=== PATIENT | male | born 1975 | race Caucasian/White ===

== ENCOUNTER 2020-05-26 03:21 | Emergency (ER) | payer MEDICARE ==
[~2020-05-26 03:21] MED LIST: ALDACTONE25 MG PO; AMLODIPINE BESYL5 MG PO; ANCEF IV 1000 MG1 GM IV; ASPIRIN EC81 MG PO; BUPROPION XL150 MG PO; CLINDAMYCIN HC300 MG PO; DAKIN'S SOLUTI500 ML TOP; DILTIAZEM ER420 MG PO; DOME-PASTE BANDA1 EA EXT; FENOFIBRATE200 MG PO; FISH OIL 1,0001 EAC1 PO; GLUCOPHAGE1000 MG PO; GLUCOPHAGE500 MG PO; IBUPROFEN800 MG PO; INVOKANA100 MG PO; KEFLEX500 MG PO; LAC-HYDRIN FIV226 GM TP; LANTUS INS100 UTS/M1 SC; LANTUS100 UNIT/1 SC; LASIX 40 MG TAB40 MG PO; LATUDA40 MG PO; LEVAQUIN750 MG PO; LEVEMIR100 UNIT/1 SQ; LIPITOR TAB 1010 MG PO; LOPRESSOR 50 MG50 MG PO; LOPRESSOR100 MG PO; LOVAZA1 GM PO; MINOXIDIL10 MG PO; NEURONTIN 300300 MG PO; NEXIUM40 MG PO; NORCO 7.5-3251 EACH PO; NORVASC5 MG PO; NOVOLOG 10100 UNITS1 SC; NOVOLOG MI100 UNIT/2 SQ; RANEXA500 MG PO; ROCEPHIN 2 GM AD2 GM IV; SEROQUEL100 MG PO; SPIRONOLACTONE50 MG PO; VANCOCIN IV 11000 MG IM; VENTOLIN HFA 66.7 GM INH; WELLBUTRIN XL150 MG PO; ZITHROMAX250 MG PO
[2020-05-26 03:59] LABS: HEMOGLOBIN 12.9 gm/dl (14.0-17.5); RED BLOOD COUNT 4.37 M/UL (4.20-5.50); WHITE BLOOD COUNT 8.7 K/UL (4.5-11.0)
[2020-05-26 08:24] LABS: HEMOGLOBIN 13.2 gm/dl (14.0-17.5); RED BLOOD COUNT 4.47 M/UL (4.20-5.50); WHITE BLOOD COUNT 8.2 K/UL (4.5-11.0)
== END 2020-05-26 10:34 | disposition short-term general hospital (02) ==
LOC: ER1 03:21
PROVIDERS: Emergency Medicine; Family Medicine
DX: K46.9 Unspecified abdominal hernia without obstruction or gangrene (principal); E11.9 Type 2 diabetes mellitus without complications
CPT/HCPCS: 80053; 83605; 83690; 85025; 85652; 86140; 87635; 93005; 96374; 96375; 96376; 99285; C9113; J1200; J2270; J2405; J2930; J7030

== ENCOUNTER 2020-12-28 16:58 | Inpatient (IN) | payer MEDICARE ==
[~2020-12-28] VITALS: Ht 177.8 cm; Wt 114.4 kg
[2020-12-28 18:42] LABS: HEMOGLOBIN 14.8 gm/dl (14.0-17.5); RED BLOOD COUNT 5.18 M/UL (4.20-5.50); WHITE BLOOD COUNT 8.9 K/UL (4.5-11.0)
[2020-12-28 19:09] LABS: BUN/CREATININE RATIO 12 (0-10)
[2020-12-28] MEDS ORDERED: LASIX40 MG PO (21:30)
[2020-12-28] MEDS ORDERED: DILTIAZEM HCL90 MG PO (21:30)
[2020-12-28] MEDS ORDERED: LIPITOR40 MG PO (21:31)
[2020-12-28] MEDS ORDERED: CLONIDINE HCL0.3 MG PO (21:31)
[2020-12-28] MEDS ORDERED: LOPRESSOR100 MG PO (21:32)
[2020-12-28] MEDS ORDERED: PRILOSEC OTC20 MG PO (22:24)
[2020-12-29 04:15] LABS: HEMOGLOBIN 14.5 gm/dl (14.0-17.5); RED BLOOD COUNT 4.94 M/UL (4.20-5.50); WHITE BLOOD COUNT 9.2 K/UL (4.5-11.0)
[2020-12-29 04:35] LABS: BUN/CREATININE RATIO 13 (0-10)
--- NOTE | 2020-12-29 19:00 | NUR ---
Patient called out to staff reporting severe chest pain that is worsening. BP 203/105. pulses palpable and good in all extremities, lung sounds clear, bowel sounds present. Notified Dr. Dobbs and new orders placed. Orders for Nitro drip per protocol, made Dr. Dobbs aware of allergy states to give it anyways.
--- NOTE | 2020-12-30 22:59 | NUR ---
PTS BP BREIFLY DROPPED TO 88/63. TOOK IT MANUALLY AND IT WAS 100/60. NOTIFIED DR. BROWN ORDERS RECIEVED. BP NOW 82/51. 500ML BOLUS STARTED PER ORDERS.
[2021-01-01 03:19] LABS: HEMOGLOBIN 12.9 gm/dl (14.0-17.5); WHITE BLOOD COUNT 7.8 K/UL (4.5-11.0)
[2021-01-01 03:57] LABS: RED BLOOD COUNT 4.29 M/UL (4.20-5.50)
[2021-01-01 04:03] LABS: BUN/CREATININE RATIO 20 (0-10)
[2021-01-01] MEDS ORDERED: LOPRESSOR 50 MG50 MG PO (15:47)
[2021-01-01] MEDS ORDERED: CARDURA 2MG TAB2 MG PO (15:47)
== END 2021-01-01 17:37 | disposition home or self-care (01) | DRG 305 ==
LOC: ER1 16:58 → PROG CARE 20:52 → CDU 20:52 → PROG CARE 21:50
PROVIDERS: Internal Medicine; Physician Assistant; ADMIT Internal Medicine
PROC: B24BZZZ Ultrasonography of Heart with Aorta (ICD-10-PCS; principal; 2020-12-29)
DX: I16.1 Hypertensive emergency (principal); N17.9 Acute kidney failure, unspecified; E66.2 Morbid (severe) obesity with alveolar hypoventilation; E11.22 Type 2 diabetes mellitus with diabetic chronic kidney disease; I08.2 Rheumatic disorders of both aortic and tricuspid valves; I25.10 Atherosclerotic heart disease of native coronary artery without angina pectoris; I44.0 Atrioventricular block, first degree; R80.9 Proteinuria, unspecified; Z20.822 Contact with and (suspected) exposure to COVID-19; N18.30 Chronic kidney disease, stage 3 unspecified; I13.0 Hypertensive heart and chronic kidney disease with heart failure and stage 1 through stage 4 chronic kidney disease, or unspecified chronic kidney disease; I50.9 Heart failure, unspecified; Z98.84 Bariatric surgery status; Z98.890 Other specified postprocedural states; Z79.899 Other long term (current) drug therapy; Z82.49 Family history of ischemic heart disease and other diseases of the circulatory system; Z88.8 Allergy status to other drugs, medicaments and biological substances; Z91.041 Radiographic dye allergy status; Z68.36 Body mass index [BMI] 36.0-36.9, adult
CPT/HCPCS: ECHO; 36415; 71045; 71250; 80048; 80053; 81001; 82550; 82553; 83874; 83880; 84484; 85025; 93005; 93306; 93880; 96374; 99285; U0002

== ENCOUNTER 2021-04-05 20:30 | Emergency (ER) | payer MEDICARE ==
[~2021-04-05 20:30] MED LIST changes: +CARDURA 2MG TAB2 MG PO; +CLONIDINE HCL0.3 MG PO; +DILTIAZEM HCL90 MG PO; +LASIX40 MG PO; +LIPITOR40 MG PO; +PRILOSEC OTC20 MG PO
[2021-04-05 21:40] LABS: HEMOGLOBIN 12.3 gm/dl (14.0-17.5); RED BLOOD COUNT 3.96 M/UL (4.20-5.50); WHITE BLOOD COUNT 13.7 K/UL (4.5-11.0)
== END 2021-04-05 23:57 | disposition home or self-care (01) ==
LOC: ER1 20:30
PROVIDERS: Preventive Medicine Occupational Medicine
DX: E86.0 Dehydration (principal); I10 Essential (primary) hypertension
CPT/HCPCS: 70450; 80053; 82140; 83690; 85025; 85652; 86140; 99285; J7030

== ENCOUNTER 2021-04-10 14:45 | Emergency (ER) | payer MEDICARE ==
[2021-04-10] MEDS ORDERED: CATAPRES 0.1MG0.1 MG PO (16:54)
[2021-04-10] MEDS ORDERED: VISTARIL25 MG PO (16:54)
== END 2021-04-10 17:20 | disposition home or self-care (01) ==
LOC: ER1 14:45
DX: F41.9 Anxiety disorder, unspecified (principal); I10 Essential (primary) hypertension; Z76.0 Encounter for issue of repeat prescription; Z88.8 Allergy status to other drugs, medicaments and biological substances
CPT/HCPCS: 99283

== ENCOUNTER 2021-07-28 22:49 | Emergency (ER) | payer MEDICARE ==
[~2021-07-28 22:49] MED LIST changes: +CATAPRES 0.1MG0.1 MG PO; +VISTARIL25 MG PO
[2021-07-29 00:39] LABS: HEMOGLOBIN 12.4 gm/dl (14.0-17.5); RED BLOOD COUNT 4.13 M/UL (4.20-5.50); WHITE BLOOD COUNT 8.1 K/UL (4.5-11.0)
[2021-07-29 00:44] LABS: BUN/CREATININE RATIO 11 (0-10)
== END 2021-07-29 05:12 | disposition home or self-care (01) ==
LOC: ER1 22:49
PROVIDERS: Physician Assistant
DX: R41.3 Other amnesia (principal); E10.9 Type 1 diabetes mellitus without complications; Z91.041 Radiographic dye allergy status
CPT/HCPCS: 70450; 71045; 80053; 82550; 82553; 82607; 82746; 84439; 84443; 84484; 85025; 99284; G0480

== ENCOUNTER 2021-09-04 20:45 | Emergency (ER) | payer MEDICARE ==
[2021-09-04 21:49] LABS: HEMOGLOBIN 12.9 gm/dl (14.0-17.5); RED BLOOD COUNT 4.3 M/UL (4.20-5.50); WHITE BLOOD COUNT 9.4 K/UL (4.5-11.0)
[2021-09-04 22:11] LABS: BUN/CREATININE RATIO 23 (0-10)
[2021-09-05] MEDS ORDERED: CLONIDINE HCL0.3 MG PO (00:55)
== END 2021-09-05 03:34 | disposition home or self-care (01) ==
LOC: ER1 20:45
PROVIDERS: Emergency Medicine
DX: I10 Essential (primary) hypertension (principal); I71.2 Thoracic aortic aneurysm, without rupture
CPT/HCPCS: 71045; 71260; 80053; 82550; 82553; 83880; 84484; 85025; 93005; 96374; 96375; 99285; J1100; J1200; Q9967

== ENCOUNTER → 2021-09-16 | Outpatient (CLI) | payer MEDICARE ==
[2021-09-18 08:16] LABS: RPR Non Reactive (Non Reactive)
[2021-09-18 14:13] LABS: LYME TOTAL ANTIBODY EIA Negative (Negative)
== END ==
LOC: LAB 15:20
PROVIDERS: Psychiatry & Neurology Neurology
DX: F41.9 Anxiety disorder, unspecified (principal); E07.9 Disorder of thyroid, unspecified; R41.3 Other amnesia; Z86.79 Personal history of other diseases of the circulatory system
CPT/HCPCS: 36415; 82607; 82746; 84443; 86592; 86618

== ENCOUNTER 2021-10-26 06:34 | Emergency (ER) | payer MEDICARE ==
[2021-10-26 08:02] LABS: HEMOGLOBIN 12.7 gm/dl (14.0-17.5); RED BLOOD COUNT 4.42 M/UL (4.20-5.50); WHITE BLOOD COUNT 9.5 K/UL (4.5-11.0)
[2021-10-26] MEDS ORDERED: ZOFRAN ODT 4 MG4 MG SL (09:59)
[2021-10-26] MEDS ORDERED: ENDOCET 5-3251 EACH PO (09:59)
== END 2021-10-26 10:14 | disposition home or self-care (01) ==
LOC: ER1 06:34
PROVIDERS: Emergency Medicine
DX: N13.2 Hydronephrosis with renal and ureteral calculous obstruction (principal); R00.1 Bradycardia, unspecified; I10 Essential (primary) hypertension; E11.9 Type 2 diabetes mellitus without complications
CPT/HCPCS: 80053; 81001; 83690; 85025; 93005; 96374; 99284; J2405

== ENCOUNTER 2021-11-17 08:06 | Emergency (ER) | payer MEDICARE ==
[~2021-11-17 08:06] MED LIST changes: +ENDOCET 5-3251 EACH PO; +ZOFRAN ODT 4 MG4 MG SL
== END 2021-11-17 09:56 | disposition home or self-care (01) ==
LOC: ER1 08:06
DX: S90.122A Contusion of left lesser toe(s) without damage to nail, initial encounter (principal); E11.40 Type 2 diabetes mellitus with diabetic neuropathy, unspecified; I10 Essential (primary) hypertension; Z91.041 Radiographic dye allergy status; W23.0XXA Caught, crushed, jammed, or pinched between moving objects, initial encounter
CPT/HCPCS: 73630; 99283

== ENCOUNTER → 2021-12-05 | Outpatient (CLI) | payer MEDICARE | LOC: EMI 10-07 13:00 | DX: R41.3 Other amnesia (principal); F41.9 Anxiety disorder, unspecified; Z86.79 Personal history of other diseases of the circulatory system; G31.9 Degenerative disease of nervous system, unspecified | CPT/HCPCS: 70551 ==

== ENCOUNTER 2021-12-29 00:45 | Emergency (ER) | payer MEDICARE | END 2021-12-29 03:03 | disposition home or self-care (01) | LOC: ER1 00:45 | DX: S56.127A Laceration of flexor muscle, fascia and tendon of right little finger at forearm level, initial encounter (principal); I11.9 Hypertensive heart disease without heart failure; E11.9 Type 2 diabetes mellitus without complications; W26.8XXA Contact with other sharp object(s), not elsewhere classified, initial encounter; Y92.009 Unspecified place in unspecified non-institutional (private) residence as the place of occurrence of the external cause | CPT/HCPCS: 12032; 73140; 96372; 99283; J0690 ==

== ENCOUNTER 2022-01-04 16:48 | Inpatient (IN) | payer MEDICARE, MEDICAID ==
[~2022-01-04] VITALS: Ht 177.8 cm; Wt 111.1 kg
[2022-01-04 18:20] LABS: RED BLOOD COUNT 3.98 M/UL (4.20-5.50); WHITE BLOOD COUNT 19.9 K/UL (4.5-11.0)
[2022-01-05 03:45] LABS: HEMOGLOBIN 10.8 gm/dl (14.0-17.5)
[2022-01-05 03:53] LABS: RED BLOOD COUNT 3.56 M/UL (4.20-5.50); WHITE BLOOD COUNT 13.9 K/UL (4.5-11.0)
[2022-01-05] MEDS ORDERED: CEFADROXIL500 MG PO (11:16)
[2022-01-05] MEDS ORDERED: NAMENDA5 MG PO (11:16)
[2022-01-05] MEDS ORDERED: GABAPENTIN600 MG PO (11:18)
[2022-01-05] MEDS ORDERED: HYDROCODONE-AC1 EAC1 PO (11:19)
[2022-01-05] MEDS ORDERED: HYDROXYZINE PAM25 MG PO (11:19)
[2022-01-05] MEDS ORDERED: BARIATRIC MV-I1 EACH PO (11:26)
[2022-01-06 06:31] LABS: HEMOGLOBIN 9.7 gm/dl (14.0-17.5); RED BLOOD COUNT 3.23 M/UL (4.20-5.50); WHITE BLOOD COUNT 6.9 K/UL (4.5-11.0)
[2022-01-06 06:58] LABS: BUN/CREATININE RATIO 27 (0-10)
[2022-01-06] MEDS ORDERED: FERROUS SULFAT325 M2 PO (08:55)
[2022-01-07 10:14] LABS: CREATININE, URINE 59.2 mg/dL (Not Estab.)
== END 2022-01-06 12:59 | disposition home or self-care (01) | DRG 683 ==
LOC: ER1 16:48 → CDU 20:52 → M/S 20:52
PROVIDERS: Emergency Medicine; Internal Medicine; ADMIT Internal Medicine
DX: N17.9 Acute kidney failure, unspecified (principal); E87.1 Hypo-osmolality and hyponatremia; Z20.822 Contact with and (suspected) exposure to COVID-19; I13.0 Hypertensive heart and chronic kidney disease with heart failure and stage 1 through stage 4 chronic kidney disease, or unspecified chronic kidney disease; I50.32 Chronic diastolic (congestive) heart failure; E87.5 Hyperkalemia; K52.9 Noninfective gastroenteritis and colitis, unspecified; D63.1 Anemia in chronic kidney disease; I95.9 Hypotension, unspecified; A05.9 Bacterial foodborne intoxication, unspecified; N18.31 Chronic kidney disease, stage 3a; E86.0 Dehydration; E78.5 Hyperlipidemia, unspecified; K59.00 Constipation, unspecified; E11.22 Type 2 diabetes mellitus with diabetic chronic kidney disease; D50.9 Iron deficiency anemia, unspecified; G47.33 Obstructive sleep apnea (adult) (pediatric); E66.9 Obesity, unspecified; Z98.84 Bariatric surgery status; Z98.890 Other specified postprocedural states; Z88.8 Allergy status to other drugs, medicaments and biological substances; Z91.041 Radiographic dye allergy status; Z82.49 Family history of ischemic heart disease and other diseases of the circulatory system; Z83.3 Family history of diabetes mellitus; Z68.28 Body mass index [BMI] 28.0-28.9, adult
CPT/HCPCS: 71045; 80048; 80053; 82043; 82550; 82553; 82570; 82728; 83036; 83540; 83550; 83690; 83735; 84484; 85025; 93005; 96372; 96374; 96375; 99285; C9113; J1644; J1756; J2405; J7030; Q0177; U0002